=== PATIENT | male | born 1940 | race Caucasian/White ===

== ENCOUNTER → 2020-10-19 09:41 | Outpatient (BNVA) | payer MEDICARE, SELFPAY | PROVIDERS: Visit Provider Urology | DX: C61 Malignant neoplasm of prostate (principal); N52.9 Male erectile dysfunction, unspecified | CPT/HCPCS: 51798; 81002; 99212 ==

== ENCOUNTER → 2022-01-13 08:30 | Outpatient (BNVA) | payer MEDICARE, SELFPAY | PROVIDERS: PCP Internal Medicine; Visit Provider Urology | DX: C61 Malignant neoplasm of prostate (principal); N52.9 Male erectile dysfunction, unspecified | CPT/HCPCS: Q3014 ==

== ENCOUNTER 2023-01-16 11:01 | Outpatient (AMB) | payer MEDICARE, SELFPAY ==
--- NOTE | 2023-01-16 11:33 | MHC.OFFVIS ---
Intake Intake Visit Reasons: 1Y PSA(set) Intake Note: Patient is present for Follow Up PSA Urology Med: None Antibiotic Allergy:None Blood Thinner: None Allergies No Known Allergies Allergy (Verified 01/16/23 11:33) HPI HPI Comments History of Present Illness Details Mr Escalera is a very pleasant male. He is a patient of Dr Manriquez. He is seen for the following urologic conditions. - prostate cancer Three days of skiing this year PSA remains stable Continue yearly evaluation Prostate cancer: Intermediate Risk Prostate cancer was diagnosed by Dr Robison in 1999. Diagnosis was reached by needle biopsy, for elevated PSA. The [place]sey grade is 3+4 = 7. TNM Classification of Malignant Tumours (TNM) T1c. The D'Shonda (NCCN) risk category is Intermediate Risk (PSA 10-20, Gl 7, T2). Initial therapy included Primary treatment, Prostatectomy (RRP/Robotic) , Additional treatment, Observation. Recent labs included a PSA (prostate-specific antigen) February 2015 , < 0.1, Feb 2016 < 0.1, September 2016 < 0.1, 09/23 < 0.1, 10/26 < 0.1, 10/27 < 0.1, 12/28 <0.1, Therapeutic plan: Continue with surveillance. [facility] Medical History Erectile dysfunction History of kidney stones HTN (hypertension) Prostate cancer Urinary urgency Surgical History History of appendectomy History of radical prostatectomy Review of Systems Const Denies chills and Denies fever(s) Card Reports no additional complaints and Denies syncope Resp Denies cough GI Denies abdominal pain and Denies heartburn Reports as per HPI and Denies change in libido Neuro Denies syncope Psych Denies change in libido Endo Denies change in libido Physical Exam Const General: cooperative, healthy appearing, comfortable and no acute distress Orientation/consciousness: patient oriented x3 HEENT Face and sinus: Yes normal facial exam Mouth: moist mucous membranes Neck Neck: Yes normal visual inspection, Yes full ROM and Yes trachea midline Chest Chest palpation & inspection: normal inspection of the chest Resp Effort & Inspection: normal respiratory effort, able to speak in complete sentences and no respiratory distress GI Inspection: Yes normal to inspection Back/Spine/Pelvis Cervical Spine: normal cervical lordosis Thoracic/Lumbar Spine: thoracic and lumbar spine normal to inspection Skin General skin exam: no rashes or lesions noted Neuro General: patient oriented x3, gait normal, tone normal and moves all extremities Extrem General: Yes normal to inspection and Yes capillary refill normal Assessment & Plan Assessment & Plan (1) Prostate cancer: Code(s): C61 - Malignant neoplasm of prostate (2) Erectile dysfunction: Code(s): N52.9 - Male erectile dysfunction, unspecified Plan Continue yearly evaluation Orders: Orders Prostate Specific Antigen 364 Days C61 - Malignant neoplasm of prostate Patient Instructions: Imaging studies, laboratory and physical exam results were discussed and reviewed in detail. No major barriers to patient understanding were identified. An opportunity to ask questions regarding the treatment plan was provided. All questions were answered. The patient expressed understanding and agreement with the above treatment plan. The patient is aware they should contact our office by phone for worsening of their current condition or the appearance of new urologic symptoms. Compliance is encouraged with any medications and followup testing that is ordered. It is a privilege to participate in the urologic care of your patient. If you have any questions or concerns regarding treatment for the above conditions, or other urologic issues, please do not hesitate to contact me. The office telephone contact is [phone]. This note is constructed using voice recognition software. While every effort has been made to ensure accuracy volunteer recruiter errors may have been included. Yours sincerely, Dr Pelon Moss MD, [facility] - Urology Providers of Expert, Compassionate Care for the Genitourinary System Coding Level of Care Code Est Pt Level 4 (86959) Diagnoses Prostate cancer C61 Erectile dysfunction N52.9
== END 2023-01-16 12:08 | disposition home or self-care (01) ==
PROVIDERS: Visit Provider Urology
DX: C61 Malignant neoplasm of prostate (principal); N52.9 Male erectile dysfunction, unspecified
CPT/HCPCS: 99213

== ENCOUNTER → 2023-01-16 11:01 | Outpatient (BNVA) | payer MEDICARE, SELFPAY | PROVIDERS: Visit Provider Urology | DX: C61 Malignant neoplasm of prostate (principal); N52.9 Male erectile dysfunction, unspecified | CPT/HCPCS: 99212 ==

== ENCOUNTER 2024-02-21 09:01 | Outpatient (AMB) | payer MEDICARE, SELFPAY ==
--- NOTE | 2024-02-21 09:11 | MHC.OFFVIS ---
Intake Visit Reasons: 1Y Follow Up-PSA(set) Intake Note: Patient is Present for Follow Up PSA Urology Medication: None Antibiotic Allergies:None Blood Thinners: None Allergies No Known Allergies Allergy (Verified 01/16/23 11:33) HPI Comments Details: Mr Escalera is a very pleasant male. He is a patient of Dr Manriquez. He is seen for the following urologic conditions. - prostate cancer Yearly prostate cancer follow-up PSA well controlled Voiding well controlled Discussed skiing at [place] Follow-up p.r.n. Will get yearly PSA with PCP Prostate cancer: Intermediate Risk Prostate cancer was diagnosed by Dr Robison in 1999. Diagnosis was reached by needle biopsy, for elevated PSA. The [place] grade is 3+4 = 7. TNM Classification of Malignant Tumours (TNM) T1c. The D'Shonda (NCCN) risk category is Intermediate Risk (PSA 10-20, Gl 7, T2). Initial therapy included Primary treatment, Prostatectomy (RRP/Robotic) , Additional treatment, Observation. Recent labs included a PSA (prostate-specific antigen) February 2015 , < 0.1, Feb 2016 < 0.1, September 2016 < 0.1, 09/23 < 0.1, 10/26 < 0.1, 10/27 < 0.1, 12/28 <0.1, 01/29 <0.1 Therapeutic plan: Continue with surveillance. [facility] Medical History HTN (hypertension) History of kidney stones Urinary urgency Erectile dysfunction Prostate cancer Surgical History History of radical prostatectomy History of appendectomy Review of Systems Const Denies chills and Denies fever(s) Card Reports no additional complaints and Denies syncope Resp Denies cough GI Denies abdominal pain and Denies heartburn Reports as per HPI and Denies change in libido Neuro Denies syncope Psych Denies change in libido Endo Denies change in libido Physical Exam Const General: cooperative, healthy appearing, comfortable and no acute distress Orientation/consciousness: patient oriented x3 HEENT Face and sinus: Yes normal facial exam Mouth: moist mucous membranes Neck Neck: Yes normal visual inspection, Yes full ROM and Yes trachea midline Chest Chest palpation & inspection: normal inspection of the chest Resp Effort & Inspection: normal respiratory effort, able to speak in complete sentences and no respiratory distress GI Inspection: Yes normal to inspection Back/Spine/Pelvis Cervical Spine: normal cervical lordosis Thoracic/Lumbar Spine: thoracic and lumbar spine normal to inspection Skin General skin exam: no rashes or lesions noted Neuro General: patient oriented x3, gait normal, tone normal and moves all extremities Extrem General: Yes normal to inspection and Yes capillary refill normal Assessment & Plan Assessment & Plan (1) Prostate cancer: Code(s): C61 - Malignant neoplasm of prostate Category: Medical (2) Erectile dysfunction: Code(s): N52.9 - Male erectile dysfunction, unspecified Category: Medical Plan PSA follow-up p.r.n. Patient Instructions: Imaging studies, laboratory and physical exam results were discussed and reviewed in detail. No major barriers to patient understanding were identified. An opportunity to ask questions regarding the treatment plan was provided. All questions were answered. The patient expressed understanding and agreement with the above treatment plan. The patient is aware they should contact our office by phone for worsening of their current condition or the appearance of new urologic symptoms. Compliance is encouraged with any medications and followup testing that is ordered. It is a privilege to participate in the urologic care of your patient. If you have any questions or concerns regarding treatment for the above conditions, or other urologic issues, please do not hesitate to contact me. The office telephone contact is [phone]. This note is constructed using voice recognition software. While every effort has been made to ensure accuracy natural resources engineer errors may have been included. Yours sincerely, Dr Pelon Moss MD, [facility] - Urology Providers of Expert, Compassionate Care for the Genitourinary System Coding Level of Care Code Est Pt Level 4 (67808) Diagnoses Prostate cancer C61 Erectile dysfunction N52.9
== END 2024-02-21 09:31 | disposition home or self-care (01) ==
PROVIDERS: PCP Internal Medicine; Visit Provider Urology
DX: C61 Malignant neoplasm of prostate (principal); N52.9 Male erectile dysfunction, unspecified
CPT/HCPCS: 99214

== ENCOUNTER → 2024-02-21 09:01 | Outpatient (BNVA) | payer MEDICARE, SELFPAY | PROVIDERS: PCP Internal Medicine; Visit Provider Urology | DX: C61 Malignant neoplasm of prostate (principal); N52.9 Male erectile dysfunction, unspecified | CPT/HCPCS: 99212 ==